=== PATIENT | male | born 2000 | race Caucasian/White ===

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

== ENCOUNTER 2023-07-15 12:09 | Emergency (ER) | payer SELFPAY ==
[~2023-07-15] VITALS: Ht 182.9 cm; Wt 54.5 kg
[~2023-07-15 12:09] MED LIST: LAMISIL1% TOP
[2023-07-15 12:12] VITALS: TEMP 98.4
[2023-07-15] MEDS ORDERED: LORazepam 1 MG TAB PO ONE (13:00)
[2023-07-15 13:34] LABS: BASO % 0.2 % (0.0-2.0); EOS # 0.4 K/mm3 (0.0-0.7); EOS % 3.4 % (0.0-4.0); GRAN # 8.8 K/mm3 (1.4-6.5); GRAN % 85.8 % (42.2-75.2); HEMOGLOBIN 13.8 g/dl (13.5-18.0); LYMPH # 0.5 K/mm3 (1.2-3.4); MEAN CELL VOLUME 91 fl (80.0-100.0); MEAN CORPUSCULAR HEMOGLOBIN 31 pg (27-31); MEAN CORPUSCULAR HGB CONC 34 g/dl (33.0-37.0); MEAN PLATELET VOLUME 9.5 fl (7.4-10.4); MONO # 0.5 K/mm3 (0.1-0.6); PLATELET COUNT 221 K/mm3 (130-400); RED BLOOD COUNT 4.53 M/mm3 (4.20-5.60); REDCELL DISTRIBUTION WIDTH-CV 12.8 % (11.5-14.5)
[2023-07-15 13:49] LABS: ACETAMINOPHEN < 7.0 ug/mL (10-30); ALANINE AMINOTRANSFERASE 18 U/L (0-55); ALKALINE PHOSPHATASE 68 U/L (40-150); ANION GAP 8 mmol/L (7-16); AST,SGOT 25 U/L (5-34); BILIRUBIN,TOTAL 0.4 mg/dL (0.2-1.2); BLOOD UREA NITROGEN 10 mg/dL (9-21); CALCIUM 9.4 mg/dL (8.4-10.2); CARBON DIOXIDE 27 mmol/L (22-29); CHLORIDE 103 mmol/L (98-107); CREATININE, serum 0.81 mg/dL (0.72-1.25); GLUCOSE 106 mg/dL (70-99); POTASSIUM 3.4 mmol/L (3.5-4.5); SODIUM 138 mmol/L (136-145); TOTAL PROTEIN 6.9 gm/dL (6.2-8.1)
[2023-07-15 13:52] LABS: ALCOHOL(ethanol),MEDICAL < 10 mg/dL (0-10); SALICYLATE < 5.0 mg/dL (15.0-30.0)
[2023-07-15 15:02] LABS: COLLECTION METHOD CLEAN CATCH
[2023-07-15 15:21] LABS: TRICYCLIC ANTIDEPRESS URINE NEGATIVE (NEGATIVE)
[2023-07-15 15:23] LABS: URINE APPEARANCE Clear (CLEAR/HAZY); URINE BLOOD Negative (NEGATIVE); URINE COLOR Yellow (YELLOW); URINE GLUCOSE Negative (NEGATIVE); URINE KETONE Negative (NEGATIVE); URINE NITRATE Negative (NEGATIVE); URINE PROTEIN(semi-quant) Negative (NEGATIVE); URINE UROBILINOGEN 0.2 E.U/dL (0.2-1.0)
[2023-07-15 15:24] LABS: MUCOUS Present (NOT PRESENT); SQUAMOUS EPITHELIAL 0-2 /hpf (0-10); URINE BACTERIA Occasional /hpf (NONE SEEN); URINE RBC 0-2 /hpf (0-2)
[2023-07-15] MEDS ORDERED: Nicotine 7 MG DAILY PATCH TD ONE (16:30)
[2023-07-15 16:58] VITALS: BP 101/73; PULSE 89
== END 2023-07-15 16:58 | disposition home or self-care (01) ==
LOC: COL.ER 12:09
PROVIDERS: Physician Assistant
DX: F23 Brief psychotic disorder (principal); F19.10 Other psychoactive substance abuse, uncomplicated

== ENCOUNTER 2023-10-30 11:22 | Emergency (ER) | payer SELFPAY ==
[~2023-10-30] VITALS: Ht 175.3 cm; Wt 50.0 kg
[2023-10-30 11:33] VITALS: TEMP 98.1
[2023-10-30 11:56] LABS: COLLECTION METHOD CLEAN CATCH
[2023-10-30 12:09] LABS: URINE APPEARANCE CLEAR (CLEAR/HAZY); URINE BLOOD NEGATIVE (NEGATIVE); URINE COLOR YELLOW (YELLOW); URINE GLUCOSE NEGATIVE (NEGATIVE); URINE KETONE 3+ (NEGATIVE); URINE NITRATE NEGATIVE (NEGATIVE); URINE PROTEIN(semi-quant) TRACE (NEGATIVE)
[2023-10-30 12:13] LABS: TRICYCLIC ANTIDEPRESS URINE NEGATIVE (NEGATIVE)
[2023-10-30 12:23] LABS: BASO # 0.1 K/mm3 (0.0-0.2); BASO % 0.6 % (0.0-2.0); EOS # 0.6 K/mm3 (0.0-0.7); EOS % 7.6 % (0.0-4.0); GRAN # 5.7 K/mm3 (1.4-6.5); GRAN % 69.8 % (42.2-75.2); HEMATOCRIT 42.3 % (42.0-52.0); HEMOGLOBIN 14.6 g/dl (13.5-18.0); LYMPH # 1.2 K/mm3 (1.2-3.4); LYMPH % 15.1 % (20.0-51.0); MEAN CELL VOLUME 90 fl (80.0-100.0); MEAN CORPUSCULAR HEMOGLOBIN 31 pg (27-31); MEAN CORPUSCULAR HGB CONC 35 g/dl (33.0-37.0); MEAN PLATELET VOLUME 9.9 fl (7.4-10.4); MONO # 0.6 K/mm3 (0.1-0.6); MONO % 6.7 % (1.7-9.3); PLATELET COUNT 272 K/mm3 (130-400); RED BLOOD COUNT 4.69 M/mm3 (4.20-5.60); REDCELL DISTRIBUTION WIDTH-CV 12.8 % (11.5-14.5)
[2023-10-30 12:38] LABS: ALANINE AMINOTRANSFERASE 10 U/L (0-55); ALBUMIN 4.4 g/dL (3.5-5.0); ALKALINE PHOSPHATASE 85 U/L (40-150); ANION GAP 12 mmol/L (7-16); AST,SGOT 15 U/L (5-34); BILIRUBIN,TOTAL 0.6 mg/dL (0.2-1.2); BLOOD UREA NITROGEN 16 mg/dL (9-21); CALCIUM 9.6 mg/dL (8.4-10.2); CHLORIDE 105 mEq/L (98-107); CREATININE, serum 0.86 mg/dL (0.72-1.25); GLUCOSE 85 mg/dL (70-99); POTASSIUM 3.6 mEq/L (3.5-4.5); SODIUM 141 mEq/L (136-145); TOTAL PROTEIN 7.3 g/dl (6.2-8.1)
[2023-10-30 12:43] LABS: ALCOHOL(ethanol),MEDICAL < 10 mg/dL (0-10); SALICYLATE < 5.0 mg/dL (15.0-30.0)
[2023-10-30] MEDS ORDERED: Nicotine 21 MG DAILY PATCH TD ONE (13:00)
[2023-10-30] MEDS ORDERED: LORazepam 1 MG TAB PO ONE (16:45)
[2023-10-30 21:08] VITALS: BP 112/76; PULSE 76
== END 2023-10-30 21:09 ==
LOC: COL.ER 11:22
PROVIDERS: Nurse Practitioner
DX: R45.851 Suicidal ideations (principal); R44.0 Auditory hallucinations; F17.210 Nicotine dependence, cigarettes, uncomplicated; Z86.59 Personal history of other mental and behavioral disorders

== ENCOUNTER 2024-03-07 15:08 | Emergency (ER) | payer SELFPAY ==
[~2024-03-07] VITALS: Ht 177.8 cm; Wt 54.5 kg
[2024-03-07 15:09] VITALS: TEMP 98
[2024-03-07] MEDS ORDERED: Ondansetron 4 MG/2 ML VIAL IV ONE (15:30)
[2024-03-07] MEDS ORDERED: LR 1,000 ML IV ONE (15:30)
[2024-03-07 15:47] LABS: BASO # 0.1 K/mm3 (0.0-0.2); BASO % 0.5 % (0.0-2.0); EOS # 0.2 K/mm3 (0.0-0.7); EOS % 1.6 % (0.0-4.0); GRAN % 87.7 % (42.2-75.2); HEMATOCRIT 45.7 % (42.0-52.0); HEMOGLOBIN 16.1 g/dl (13.5-18.0); LYMPH # 0.7 K/mm3 (1.2-3.4); LYMPH % 7.8 % (20.0-51.0); MEAN CELL VOLUME 89 fl (80.0-100.0); MEAN CORPUSCULAR HEMOGLOBIN 31 pg (27-31); MEAN CORPUSCULAR HGB CONC 35 g/dl (33.0-37.0); MONO # 0.2 K/mm3 (0.1-0.6); MONO % 2.2 % (1.7-9.3); PLATELET COUNT 370 K/mm3 (130-400); RED BLOOD COUNT 5.16 M/mm3 (4.20-5.60); REDCELL DISTRIBUTION WIDTH-CV 12.3 % (11.5-14.5)
[2024-03-07 16:05] LABS: ALANINE AMINOTRANSFERASE 15 U/L (0-55); ALBUMIN 4.7 g/dL (3.5-5.0); ALKALINE PHOSPHATASE 85 U/L (40-150); ANION GAP 19 mmol/L (7-16); AST,SGOT 15 U/L (5-34); BILIRUBIN,TOTAL 0.4 mg/dL (0.2-1.2); BLOOD UREA NITROGEN 14 mg/dL (9-21); CALCIUM 9.8 mg/dL (8.4-10.2); CHLORIDE 104 mEq/L (98-107); CREATININE, serum 1.07 mg/dL (0.72-1.25); GLUCOSE 132 mg/dL (70-99); POTASSIUM 4.5 mEq/L (3.5-4.5); SODIUM 138 mEq/L (136-145); TOTAL PROTEIN 8.3 g/dl (6.2-8.1)
[2024-03-07 16:06] LABS: VALPROIC ACID (DEPAKENE) < 12.5 ug/mL (43.5-90.5)
[2024-03-07] MEDS ORDERED: LORazepam 2 MG/ML 1 ML VIAL IV ONE (16:15)
[2024-03-07 18:22] VITALS: BP 115/80; PULSE 112
== END 2024-03-07 18:22 | disposition home or self-care (01) ==
LOC: COL.ER 15:08
PROVIDERS: Emergency Medicine
DX: G40.909 Epilepsy, unspecified, not intractable, without status epilepticus (principal)
CPT/HCPCS: J2060; J2405; J7120

== ENCOUNTER 2024-04-07 18:38 | Emergency (ER) | payer SELFPAY ==
[~2024-04-07] VITALS: Ht 177.8 cm; Wt 59.1 kg
[2024-04-07 18:41] VITALS: TEMP 98.1
[2024-04-07 19:03] LABS: BASO # 0.1 K/mm3 (0.0-0.2); BASO % 0.5 % (0.0-2.0); EOS # 0.4 K/mm3 (0.0-0.7); EOS % 4.4 % (0.0-4.0); GRAN # 8.4 K/mm3 (1.4-6.5); GRAN % 85.2 % (42.2-75.2); HEMATOCRIT 42.1 % (42.0-52.0); HEMOGLOBIN 14.1 g/dl (13.5-18.0); LYMPH # 0.6 K/mm3 (1.2-3.4); LYMPH % 6.4 % (20.0-51.0); MEAN CELL VOLUME 91 fl (80.0-100.0); MEAN CORPUSCULAR HEMOGLOBIN 31 pg (27-31); MEAN CORPUSCULAR HGB CONC 34 g/dl (33.0-37.0); MEAN PLATELET VOLUME 9.6 fl (7.4-10.4); MONO # 0.3 K/mm3 (0.1-0.6); MONO % 3.1 % (1.7-9.3); PLATELET COUNT 342 K/mm3 (130-400); RED BLOOD COUNT 4.63 M/mm3 (4.20-5.60); REDCELL DISTRIBUTION WIDTH-CV 12.7 % (11.5-14.5)
[2024-04-07 19:13] LABS: ALANINE AMINOTRANSFERASE 36 U/L (0-55); ALBUMIN 4.4 g/dL (3.5-5.0); ALKALINE PHOSPHATASE 102 U/L (40-150); ANION GAP 16 mmol/L (7-16); AST,SGOT 37 U/L (5-34); BILIRUBIN,TOTAL 0.3 mg/dL (0.2-1.2); BLOOD UREA NITROGEN 18 mg/dL (9-21); CALCIUM 10.3 mg/dL (8.4-10.2); CHLORIDE 103 mEq/L (98-107); CREATININE, serum 0.77 mg/dL (0.72-1.25); GLUCOSE 90 mg/dL (70-99); SODIUM 136 mEq/L (136-145); TOTAL PROTEIN 7.7 g/dl (6.2-8.1)
[2024-04-07 19:14] LABS: ALCOHOL(ethanol),MEDICAL < 10 mg/dL (0-10)
[2024-04-07 19:34] VITALS: BP 130/90; PULSE 88
== END 2024-04-07 19:46 | disposition home or self-care (01) ==
LOC: COL.ER 18:38
PROVIDERS: Nurse Practitioner
DX: G40.909 Epilepsy, unspecified, not intractable, without status epilepticus (principal); Z91.141 Patient's other noncompliance with medication regimen due to financial hardship; F17.200 Nicotine dependence, unspecified, uncomplicated; Z20.822 Contact with and (suspected) exposure to COVID-19

== ENCOUNTER 2024-05-20 12:30 | Emergency (ER) | payer SELFPAY ==
[~2024-05-20] VITALS: Ht 177.8 cm; Wt 75.0 kg
[2024-05-20 12:32] VITALS: TEMP 97.6
[2024-05-20] MEDS ORDERED: levETIRAcetam 1,000 MG in Syringe 1 EACH IV ONE (12:45)
[2024-05-20] MEDS ORDERED: LORazepam 2 MG/ML 1 ML VIAL IV ONE (12:45)
[2024-05-20 12:57] LABS: BASO # 0.1 K/mm3 (0.0-0.2); BASO % 0.5 % (0.0-2.0); EOS # 0.5 K/mm3 (0.0-0.7); EOS % 3.4 % (0.0-4.0); GRAN # 9.8 K/mm3 (1.4-6.5); GRAN % 74.3 % (42.2-75.2); HEMATOCRIT 48.8 % (42.0-52.0); HEMOGLOBIN 16.2 g/dl (13.5-18.0); LYMPH # 1.9 K/mm3 (1.2-3.4); LYMPH % 14.4 % (20.0-51.0); MEAN CELL VOLUME 92 fl (80.0-100.0); MEAN CORPUSCULAR HEMOGLOBIN 31 pg (27-31); MEAN CORPUSCULAR HGB CONC 33 g/dl (33.0-37.0); MEAN PLATELET VOLUME 9.8 fl (7.4-10.4); MONO # 0.8 K/mm3 (0.1-0.6); PLATELET COUNT 364 K/mm3 (130-400); RED BLOOD COUNT 5.28 M/mm3 (4.20-5.60); REDCELL DISTRIBUTION WIDTH-CV 13.1 % (11.5-14.5)
[2024-05-20 13:05] LABS: ALBUMIN 4.8 g/dL (3.5-5.0); BILIRUBIN,TOTAL 0.2 mg/dL (0.2-1.2); CALCIUM 9.7 mg/dL (8.4-10.2); CREATININE, serum 1.11 mg/dL (0.72-1.25); POTASSIUM 4.8 mEq/L (3.5-4.5); TOTAL PROTEIN 8.6 g/dl (6.2-8.1)
[2024-05-20] MEDS ORDERED: NS 1,000 ML IV ONE (13:14)
[2024-05-20] MEDS ORDERED: KEPPRA 500MG500 MG PO ×3 (15:24→16:48)
[2024-05-20] MEDS ORDERED: NORCO 325 MG-51 TAB PO ×3 (16:00→16:48)
[2024-05-20] MEDS ORDERED: Ketorolac 15 MG/ML VIAL IV ONE (16:00)
[2024-05-20 16:34] VITALS: BP 133/90; PULSE 109
[2024-05-20] MEDS ORDERED: LAMISIL1% TOP (16:39)
== END 2024-05-20 16:34 | disposition home or self-care (01) ==
LOC: COL.ER 12:30
PROVIDERS: Personal Emergency Response Attendant
DX: S91.312A Laceration without foreign body, left foot, initial encounter (principal); G40.909 Epilepsy, unspecified, not intractable, without status epilepticus; Z79.899 Other long term (current) drug therapy; Z86.73 Personal history of transient ischemic attack (TIA), and cerebral infarction without residual deficits; W25.XXXA Contact with sharp glass, initial encounter; Y93.E1 Activity, personal bathing and showering; Y92.002 Bathroom of unspecified non-institutional (private) residence as the place of occurrence of the external cause
CPT/HCPCS: J1885; J1953; J2060; J7030